=== PATIENT | male | born 1970 | race Caucasian/White ===

== ENCOUNTER → 2016-05-12 | Outpatient (REF) ==
[~2016-05-12] MED LIST: CELE20TA PO; No Home Meds; TRAZ50TA4 PO
== END ==
LOC: M CARPUL 12:25
PROVIDERS: ATTEND Nurse Practitioner Adult Health
DX: Z02.89 Encounter for other administrative examinations (principal)

== ENCOUNTER → 2017-05-18 | Outpatient (REF) | LOC: M LAB 09:44 | DX: Z00.00 Encounter for general adult medical examination without abnormal findings (principal) ==

== ENCOUNTER → 2017-06-07 | Outpatient (REF) | LOC: M CARPUL 14:27 | DX: Z00.00 Encounter for general adult medical examination without abnormal findings (principal) ==

== ENCOUNTER → 2019-06-13 | Outpatient (REF) ==
[~2019-06-13] MED LIST changes: +TRAZ-252 PO; -TRAZ50TA4 PO
--- NOTE | 2019-06-13 13:05 | PFTRPT ---
Site: [facility], [address] [place] [address], [id number] ID: [id number] Name: JAMIN TRENT Visit Date: 06/13/2019 Second ID: [id number] Referring Doctor: Candi Whitt Reviewing Doctor: Flaquito Viveros MD Librarian Assistant: Debra Mott Age: 49 : 1970 Sex: Male Race: Height: 68.00 Inches Weight: 186.00 Lbs BSA: 1.98 Order IDs: [id number] Requested Test(s): <RESP-PFT.DLCO> Diagnosis: [employer] SCREENING test meet the ATS standards for acceptability and repeatability. Review Status: Not Reviewed Pre-Bronch Post-Bronch Pred Actual %Pred Actual %Chng SPIROMETRY FVC (L) 4.70 4.56 97 FEV1 (L) 3.65 2.77 75 FEV1/FVC (%) 78 61 77 FEF 25% (L/sec) 7.50 3.42 45 FEF 50% (L/sec) 4.89 1.62 33 FEF 75% (L/sec) 1.60 0.51 31 FEF 25-75% (L/sec) 3.24 1.43 44 FEF Max (L/sec) 9.33 6.23 66 FIVC (L) 4.11 FIF 50% (L/sec) 4.95 5.40 109 FIF Max (L/sec) 5.96 MVV (L/min) 145 108 74 Expiratory Time (sec) 10.07 Back Extrap Vol (L) 0.05 Time To FEFmax (sec) 0.064 LUNG VOLUMES SVC (L) 4.61 4.39 95 IC (L) 3.24 3.35 103 ERV (L) 1.37 1.04 75 TGV (L) 3.32 3.95 118 RV (Pleth) (L) 1.95 2.91 149 TLC (Pleth) (L) 6.56 7.29 111 RV/TLC (Pleth) (%) 30 40 132 DIFFUSION DLCOunc (ml/min/mmHg) 29.64 28.90 97 DLCOcor (ml/min/mmHg) 29.64 29.77 100 DL/VA (ml/min/mmHg/L) 4.52 4.42 97 VA (L) 6.56 6.74 102 BHT (sec) 10.32 IVC (L) 4.03 TLC (SB) (L) 6.89 AIRWAYS RESISTANCE Raw (cmH2O/L/s) 1.45 1.50 103 Gaw (L/s/cmH2O) 1.03 0.67 64 sRaw (cmH2O*s) 4.76 6.66 139 sGaw (1/cmH2O*s) 0.20 0.15 75 BLOOD GASES Hgb (gm/dL) 13.6
== END ==
LOC: M CARPUL 12:33 → EDSTATUS 13:00
PROVIDERS: ATTEND Nurse Practitioner Adult Health
DX: Z02.1 Encounter for pre-employment examination (principal)

== ENCOUNTER → 2020-06-04 | Outpatient (REF) ==
--- NOTE | 2020-06-04 14:50 | PFTRPT ---
Height: 68.00 Inches Weight: 186.00 Lbs BSA: 1.98 DATE: 06/04/2020 ORDERING PHYSICIAN: Candi Whitt NP Study is of excellent technical quality. Forced vital capacity is normal. FEV1 out of proportion. Obstructive index is therefore reduced. Expiratory limit of the flow-volume loop consistent with flow rate limitation. No bronchodilator response was tested. Total lung capacity is mildly elevated. Residual volume borderline for air trapping. Diffusing capacity is normal and remains normal uncorrected for alveolar volume. No hemoglobin available for correction. Airway resistance and conductance are normal. IMPRESSION: At least mild obstructive ventilatory impairment. Please correlate clinically. MTDD
== END ==
LOC: M EMP 13:56 → EDSTATUS 14:00
PROVIDERS: ATTEND Nurse Practitioner Adult Health
DX: Z02.89 Encounter for other administrative examinations (principal)

== ENCOUNTER → 2021-04-15 | Outpatient (REF) ==
[2021-04-15 11:08] LABS: RSV AMPLIFICATION NEGATIVE (NEGATIVE)
== END ==
LOC: M EMP 07:51
PROVIDERS: ATTEND Family Medicine
DX: Z11.52 Encounter for screening for COVID-19 (principal); Z20.822 Contact with and (suspected) exposure to COVID-19

== ENCOUNTER → 2021-04-15 | Outpatient (REF) | LOC: M EMP 08:07 | PROVIDERS: ATTEND Family Medicine | DX: Z11.52 Encounter for screening for COVID-19 (principal); Z20.822 Contact with and (suspected) exposure to COVID-19 ==

== ENCOUNTER → 2021-07-15 | Outpatient (REF) | LOC: M CARPUL 12:52 → EDSTATUS 13:00 | PROVIDERS: ATTEND Nurse Practitioner Adult Health | DX: Z02.89 Encounter for other administrative examinations (principal) ==

== ENCOUNTER 2022-08-21 14:08 | Emergency (ER) | payer BC, OTHER ==
[~2022-08-21] VITALS: Ht 172.7 cm; Wt 80.7 kg
[2022-08-21] MEDS ORDERED: IBUP200C25 PO (14:14)
[2022-08-21] MEDS ORDERED: LIDOCAINE 5% (LIDODERM) PATCH TD ONE (14:30)
[2022-08-21] MEDS ORDERED: KETOROLAC 60MG 2ML VIAL IM ONE (14:30)
[2022-08-21 16:24] LABS: CK-MB VALUE MASS < 1.0 NG/ML (<3.6)
[2022-08-21 16:29] LABS: CPK CREATINE PHOSPHOKINASE 111 U/L (46-171)
[2022-08-21] MEDS ORDERED: ASPE4PAD TOP (16:45)
[2022-08-21] MEDS ORDERED: HYDR-3713 PO (16:45)
[2022-08-21] MEDS ORDERED: NAPR-837 PO (16:45)
[2022-08-21 17:04] VITALS: BP 168/100
== END 2022-08-21 17:07 | disposition home or self-care (01) ==
LOC: M ED 14:48
DX: S20.219A Contusion of unspecified front wall of thorax, initial encounter (principal); V00.141A Fall from scooter (nonmotorized), initial encounter; Y92.410 Unspecified street and highway as the place of occurrence of the external cause; Y93.89 Activity, other specified; Y99.8 Other external cause status; F32.A Depression, unspecified; F41.9 Anxiety disorder, unspecified; F17.200 Nicotine dependence, unspecified, uncomplicated
CPT/HCPCS: 71101; 82550; 82553; 84484; 93005; 96372; 99284; J1885

== ENCOUNTER → 2023-03-11 | Outpatient (REF) ==
[~2023-03-11] MED LIST changes: +ASPE4PAD TOP; +HYDR-3713 PO; +IBUP200C25 PO; +NAPR-837 PO
== END ==
LOC: M EMP 14:25
PROVIDERS: ATTEND Family Medicine
DX: Z11.52 Encounter for screening for COVID-19 (principal)

== ENCOUNTER 2023-06-01 19:24 | Emergency (ER) | payer BC ==
[~2023-06-01] VITALS: Ht 172.7 cm; Wt 82.6 kg
[2023-06-01 19:26] VITALS: BP 172/98; TEMP 97.8; O2SAT 98
== END 2023-06-02 00:25 | disposition left against medical advice (07) ==
LOC: M ED 19:24
DX: Z53.21 Procedure and treatment not carried out due to patient leaving prior to being seen by health care provider (principal)

== ENCOUNTER → 2023-06-01 | Outpatient (REF) | LOC: M EMP 07:30 | PROVIDERS: ATTEND Family Medicine | DX: Z11.52 Encounter for screening for COVID-19 (principal); U07.1 COVID-19 ==

== ENCOUNTER → 2023-07-13 | Outpatient (REF) | LOC: M CARPUL 12:49 | PROVIDERS: ATTEND Nurse Practitioner Adult Health | DX: Z00.00 Encounter for general adult medical examination without abnormal findings (principal) ==

== ENCOUNTER → 2024-05-11 | Outpatient (REF) | LOC: M EMP 10:09 | PROVIDERS: ATTEND Family Medicine | DX: Z01.89 Encounter for other specified special examinations (principal) ==

== ENCOUNTER → 2024-07-25 | Outpatient (REF) | LOC: M CARPUL 14:10 | PROVIDERS: ATTEND Nurse Practitioner Adult Health | DX: Z02.1 Encounter for pre-employment examination (principal); L92.9 Granulomatous disorder of the skin and subcutaneous tissue, unspecified ==